=== PATIENT | female | born 1990 | race Caucasian/White ===

== ENCOUNTER 2019-07-25 14:24 | Emergency (ER) | payer OTHER ==
[2019-07-25 14:33] VITALS: BP 163/119
== END 2019-07-25 14:54 | disposition left against medical advice (07) ==
LOC: ED 14:24
DX: Z53.21 Procedure and treatment not carried out due to patient leaving prior to being seen by health care provider (principal); R51 Headache
CPT/HCPCS: 99281

== ENCOUNTER 2019-07-25 15:00 | Emergency (ER) | payer SELFPAY ==
--- OUTSIDE RECORDS SUMMARY | 2019-07-25 15:09 | XMS REPORT | Continuity of Care Document ---
:1990 Author Organization [facility] Support Name Relationship Address Phone KETAN BENAVIDEZ mother [address] [place] [address] KETAN BENAVIDEZ mother [address] [place] [address] Allergies and Intolerances Code Code Allergy Type Reaction Severity Start End Status System Substance Date Date RXNorm Omnicef Drug Rash Mild Active allergy (disorder) 7980 RXNorm Penicillin G Drug Rash Mild Active allergy (disorder) 4053 RXNorm Erythromycin Drug stomach Mild Active Base allergy upset (disorder) 7052 RXNorm Morphine Drug stomach ach Mild Active allergy (disorder) Medications RxNorm Medication Dose Route Instructions Start Date End Date Status 676314 Clonidine 0.1 mg oral orally every day Active Hydrochloride 0.1 at bedtime as MG Oral Tablet needed. L-Norgest & E 1 tab oral orally daily Active Estradiol-E Estrad 0.15 mg-30 mcg (84)/10 mcg (7) 17866 Ondansetron 4 mg oral orally every 6 Active hours as needed. (as needed for nausea and vomiting) 479315 venlafaxine 75 MG 75 mg oral orally daily Active Oral Tablet 509574 24 HR venlafaxine 37.5 mg oral orally daily Completed 37.5 MG Extended Release Oral Capsule 19740924 Ciprofloxacin 250 250 mg oral orally 2 times 04/19/2019 Completed MG Oral Tablet per day (7 days) 912292 Clonidine 0.1 mg oral orally every day Completed Hydrochloride 0.1 at bedtime MG Oral Tablet 364 Doxycycline 100 mg oral orally 2 times Completed per day (14 days) L-Norgest & E 1 tab oral orally daily Completed Estradiol-E Estrad (Seasonique) 532753 Metronidazole 500 500 mg oral orally 2 times Completed MG Oral Tablet per day (7 days) Medications At Time Of Discharge RxNorm Medication Dose Route Instructions Start Date End Date Status 093883 Clonidine 0.1 mg oral orally every day Active Hydrochloride 0.1 MG at bedtime as Oral Tablet needed. L-Norgest & E 1 tab oral orally daily Active Estradiol-E Estrad 0.15 mg-30 mcg (84)/10 mcg (7) 71919 Ondansetron 4 mg oral orally every 6 Active hours as needed. (as needed for nausea and vomiting) 622566 venlafaxine 75 MG 75 mg oral orally daily Active Oral Tablet Problems Code Code System Problem Name Start Date End Date Status 42079712 SNOMED-CT Pyelonephritis 11/26/2017 Active 694911019 SNOMED-CT Sepsis syndrome 11/26/2017 Active 64227159 SNOMED-CT Hyponatremia 11/26/2017 Active 078157049 SNOMED-CT Hypomagnesemia 11/26/2017 Active 33179690 SNOMED-CT Muscle strain 07/01/2013 U Active 35449199 SNOMED-CT Maxillary sinusitis U Active 56030307 SNOMED-CT Contusion of nose U Active 168595916 SNOMED-CT Syncope U Active 10617705 SNOMED-CT Migraine U Active 07899381 SNOMED-CT Kidney stone U Active Procedures Code Code System Procedure Date 62967551 SNOMED CT Cholecystectomy U GANGLION CYST REMOVAL U Results Laboratory Results Order: BASIC METABOLIC PANEL Specimen Source: Body Site: Legend: (G,H) = High, (GG,HH,CH,#H) = Above High Threshold, ( #,L) = Low, (##,CL,#L,LL) = Below Low Threshold, (C,CC,CA,#A,A) = Abnormal LOINC Test Result Flag Range Units Date 2950-10 1Sodium SerPl-sCnc 137 136-145 mmol/L 06/21/2019 12:41 2823-3 1Potassium SerPl-sCnc 4.0 3.5-5.2 mmol/L 06/21/2019 12:41 5-0 1Chloride SerPl-sCnc 113 H 100-108 mmol/L 06/21/2019 12:41 2027-9 1CO2 SerPl-sCnc 19 L 21-32 mmol/L 06/21/2019 12:41 2345-7 1Glucose SerPl-mCnc 83 70-100 mg/dL 06/21/2019 12:41 3094-0 1BUN SerPl-mCnc 8 7-21 mg/dL 06/21/2019 12:41 2160-0 1Creat SerPl-mCnc 0.7 0.6-1.3 mg/dL 06/21/2019 12:41 Interpretive Daiana: 1Normal Kidney Function or Mild Disease - GFR >OR= 60 Chronic Kidney Disease - GFR 15-59 Renal Failure - GFR < 15 GFR not calculated on patients under 18 years of age. Calculated (estimated) GFR is based on the MDRD Study equation, which assumes a steady state for creatinine. Estimated GFR may not be appropriate for medication dosing. 89835-0 1Ca-I SerPl-mCnc 7.8 L 8.5-10.8 mg/dL 06/21/2019 12:41 13331-3 1GFR/BSA.pred SerPl-ArVRat >60 06/21/2019 12:41 Performing Lab Footnotes:[facility] - [id number] - [address] [place] [address] IFRAH [id number] Order: LIPASE Specimen Source: Body Site: Legend: (G,H) = High, (GG,HH, CH,#H) = Above High Threshold, (#,L) = Low, (##,CL,#L,LL) = Below Low Threshold , (C,CC,CA,#A,A) = Abnormal LOINC Test Result Flag Range Units Date 3040-3 1Lipase SerPl-cCnc 47 8-78 U/L 06/21/2019 12:41 Performing Lab Footnotes:[facility] - [id number] - [address] [place] [address] IFRAH [id number] Order: AMYLASE Specimen Source: Body Site: Legend: (G,H) = High, (GG,HH ,CH,#H) = Above High Threshold, (#,L) = Low, (##,CL,#L,LL) = Below Low Threshold , (C,CC,CA,#A,A) = Abnormal LOINC Test Result Flag Range Units Date 17996 1Amylase Ur-cCnc 216 H 25-125 U/L 06/21/2019 07:00 Performing Lab Footnotes:[facility] - [id number] - [address] [place] [address] IFRAH Saucedo CORINAOMD1 Order: CBC DIFF Specimen Source: Body Site: Legend: (G,H) = High, (GG, HH,CH,#H) = Above High Threshold, (#,L) = Low, (##,CL,#L,LL) = Below Low Threshold, (C,CC,CA,#A,A) = Abnormal LOINC Test Result Flag Range Units Date 6690-2 1WBC # Bld Auto 8.0 4.8-10.8 K/uL 06/21/2019 07:00 06817-7 1RBC # Bld 4.57 4.20-5.40 M/uL 06/21/2019 07:00 718-7 1Hgb Bld-mCnc 12.9 12.0-16.0 gm/dL 06/21/2019 07:00 4544-3 1Hct VFr Bld Auto 38.4 36.0-48.0 % 06/21/2019 07:00 787-2 1MCV RBC Auto 83.8 80.0-100.0 fL 06/21/2019 07:00 42132-2 1MCHC RBC-mCnc 33.6 30.0-36.5 % 06/21/2019 07:00 26716-2 1MCH RBC Qn 28.2 27.0-34.0 pg 06/21/2019 07:00 29522-8 1RDW RBC 11.7 11.0-15.0 % 06/21/2019 07:00 777-3 1Platelet # Bld Auto 245 130-450 K/uL 06/21/2019 07:00 29567-4 1PMV Bld Auto 8.3 6.0-12.0 fL 06/21/2019 07:00 751-8 1Neutrophils # Bld Auto 53 37-80 % 06/21/2019 07:00 64440-3 1Lymphocytes NFr Bld 34 10-50 % 06/21/2019 07:00 5905-5 1Monocytes NFr Bld Auto 9 0-12 % 06/21/2019 07:00 46513-7 1Eosinophil # Bld 2 <=8 % 06/21/2019 07:00 704-7 1Basophils # Bld Auto 1 <=3 % 06/21/2019 07:00 01216-1 1Neutrophils # Bld 4.2 1.8-8.6 K/uL 06/21/2019 07:00 731-0 1Lymphocytes # Bld Auto 2.7 0.5-5.0 K/uL 06/21/2019 07:00 742-7 1Monocytes # Bld Auto 0.7 0.0-1.3 K/uL 06/21/2019 07:00 29550-3 1Eosinophil # Bld 0.2 0.0-0.9 K/uL 06/21/2019 07:00 704-7 1Basophils # Bld Auto 0.1 0.0-0.3 K/ul 06/21/2019 07:00 Performing Lab Footnotes:[facility] - [id number] - [address] [place] [address] IFRAH VICK Order: CK Specimen Source: Body Site: Legend: (G,H) = High, (GG,HH,CH,# H) = Above High Threshold, (#,L) = Low, (##,CL,#L,LL) = Below Low Threshold, (C, CC,CA,#A,A) = Abnormal LOINC Test Result Flag Range Units Date 2157-6 1CK SerPl-cCnc 445 CH 21-215 U/L 06/21/2019 07:00 Performing Lab Footnotes:[facility] - [id number] - [address] [place] [address] IFRAH Saucedo RICCIOMD1 Order: COMPREHENSIVE PANEL Specimen Source: Body Site: Legend: (G,H) = High, (GG,HH,CH,#H) = Above High Threshold, (#,L) = Low, (##,CL,#L,LL) = Below Low Threshold, (C,CC,CA,#A,A) = Abnormal LOINC Test Result Flag Range Units Date 2951-2 1Sodium SerPl-sCnc 136 136-145 mmol/L 06/21/2019 07:00 2823-3 1Potassium SerPl-sCnc 4.2 3.5-5.2 mmol/L 06/21/2019 07:00 2075-0 1Chloride SerPl-sCnc 111 H 100-108 mmol/L 06/21/2019 07:00 8-9 1CO2 SerPl-sCnc 19 L 21-32 mmol/L 06/21/2019 07:00 2345-7 1Glucose SerPl-mCnc 102 H 70-100 mg/dL 06/21/2019 07:00 3094-0 1BUN SerPl-mCnc 11 7-21 mg/dL 06/21/2019 07:00 2160-0 1Creat SerPl-mCnc 0.7 0.6-1.3 mg/dL 06/21/2019 07:00 Interpretive Daiana: 1Normal Kidney Function or Mild Disease - GFR >OR= 60 Chronic Kidney Disease - GFR 15-59 Renal Failure - GFR < 15 GFR not calculated on patients under 18 years of age. Calculated (estimated) GFR is based on the MDRD Study equation, which assumes a steady state for creatinine. Estimated GFR may not be appropriate for medication dosing. 42098-8 1Ca-I SerPl-mCnc 8.4 L 8.5-10.8 mg/dL 06/21/2019 07:00 70535-7 1GFR/BSA.pred SerPl-ArVRat >60 06/21/2019 07:00 29503-7 1Bilirub Bld-mCnc 0.4 0.0-1.2 mg/dL 06/21/2019 07:00 2885-2 1Prot SerPl-mCnc 6.8 6.4-8.2 gm/dL 06/21/2019 07:00 1751-7 1Albumin SerPl-mCnc 4.0 3.4-4.8 gm/dL 06/21/2019 07:00 6768-6 1ALP SerPl-cCnc 58 40-150 U/L 06/21/2019 07:00 1742-6 1ALT SerPl-cCnc 20 0-55 U/L 06/21/2019 07:00 1920-8 1AST SerPl-cCnc 22 5-37 U/L 06/21/2019 07:00 Performing Lab Footnotes:[facility] - [id number] - [address] [place] [address] IFRAH VICK Order: LIPASE Specimen Source: Body Site: Legend: (G,H) = High, (GG,HH, CH,#H) = Above High Threshold, (#,L) = Low, (##,CL,#L,LL) = Below Low Threshold , (C,CC,CA,#A,A) = Abnormal LOINC Test Result Flag Range Units Date 3040-3 1Lipase SerPl-cCnc 268 H 8-78 U/L 06/21/2019 07:00 Performing Lab Footnotes:[facility] - [id number] - [address] [place] [address] IFRAH ARRIAGAOMD1 Order: MAGNESIUM Specimen Source: Body Site: Legend: (G,H) = High, (GG, HH,CH,#H) = Above High Threshold, (#,L) = Low, (##,CL,#L,LL) = Below Low Threshold, (C,CC,CA,#A,A) = Abnormal LOINC Test Result Flag Range Units Date 35296-6 1Magnesium SerPl-mCnc 1.9 1.7-2.6 mg/dL 06/21/2019 07:00 Performing Lab Footnotes:[facility] - [id number] - [address] [place] [address] IFRAH ARRIAGAOMD1 Order: PT/INR Specimen Source: Body Site: Legend: (G,H) = High, (GG,HH, CH,#H) = Above High Threshold, (#,L) = Low, (##,CL,#L,LL) = Below Low Threshold , (C,CC,CA,#A,A) = Abnormal LOINC Test Result Flag Range Units Date 59022 1PT Time PPP 10.8 9.4-12.4 sec 06/21/2019 07:00 6301-6 1INR PPP 1.0 06/21/2019 07:00 Interpretive Daiana: 1 INR INTERPERTATION 2.0-3.0 THERAPEUTIC MONITORING 2.5-3.5 HEART VALVE REPLACEMENT Performing Lab Footnotes:[facility] - [id number] - [address] [place] [address] IFRAH VICK Order: PTT Specimen Source: Body Site: Legend: (G,H) = High, (GG,HH,CH, #H) = Above High Threshold, (#,L) = Low, (##,CL,#L,LL) = Below Low Threshold, (C ,CC,CA,#A,A) = Abnormal LOINC Test Result Flag Range Units Date 3172-10 1aPTT Time Bld 27.2 25.6-36.4 sec 06/21/2019 07:00 Performing Lab Footnotes:[facility] - [id number] - [address] [place] [address] IFRAH VICK Order: TROPONIN I Specimen Source: Body Site: Legend: (G,H) = High, (GG ,HH,CH,#H) = Above High Threshold, (#,L) = Low, (##,CL,#L,LL) = Below Low Threshold, (C,CC,CA,#A,A) = Abnormal LOINC Test Result Flag Range Units Date 92363-5 1Troponin I SerPl-mCnc 0.00 0.00-0.04 ng/mL 06/21/2019 07:00 Interpretive Daiana: 1 TROPONIN INTERPRETATION 0.00 - 0.04 ng/ml Normal 0.05 - 0.29 ng/ml Dang Zone, Uncertain for AMI Greater than 0.30 ng/ml Suggestive of AMI Performing Lab Footnotes:[facility] - [id number] - [address] [place] [address] IFRAH Saucedo NAVA Radiology Results Order: CT-ABD PELVIS WITH IV CONTRASTExam Completion Date:06/21/2019 08: 10:[address] ABDOMEN AND PELVIS WITH CONTRAST CLINICAL INFORMATION: -- UNSPECIFIED ABDOMINAL PAIN COMPARISON: CT abdomen and pelvis September 2018 PROCEDURE: Contiguous images were obtained through the abdomen and pelvis with intravenous contrast. Automated exposure control, adjustment of the mA and/or kV according to patient size, and/or iterative reconstruction techniques were utilized for radiation dose optimization. Amount and type of contrast that was injected and/ or discarded is recorded in the electronic medical record. FINDINGS: Chest Base: Unremarkable. Liver/Biliary Tract: Cholecystectomy. Mild fatty change along the falciform ligament. Pancreas: Unremarkable. Spleen: Unremarkable. Adrenals: Unremarkable. Kidneys and Collecting Systems: There are bilateral lower pole renal calculi, 2 on the right and 2 on the left. All measure less than 3 mm in size. The calculi on the left were not present in September 2018. No hydronephrosis or focal renal lesion is seen bilaterally. Lymph Nodes: Unremarkable. Vessels: Unremarkable for age. GI Tract/ Mesentery and Peritoneal Cavity: Bowel unremarkable. Normal appendix. Uterus/ Ovaries: Unremarkable. Bladder: Unremarkable. Soft Tissues/Musculoskeletal : No acute abnormality. IMPRESSION: Bilateral nonobstructing lower pole renal calculi. All measure less than 3 mm in size. No hydronephrosis bilaterally. The left-sided renal calculi are new since September 2018. END OF IMPRESSION I have personally reviewed the images and the Resident's/Fellow 's interpretation and agree withor edited the findings. [facility] then provides those same results to [facility]. All results are availableto [facility] and [facility] provider portal users. [facility] DICOM images are available to the [facility] provider portal users only. [facility] DICOM images are not available to the [facility] provider portal users. There is no current [facility] cross-[facility] functionality allowing images to be available through the [facility] to [facility] connectivity. Interpreted By: Rahul Norton M.D. Electronically signed By: Ifrah Ventura M.D. Read By: IFRAH VENTURA Date: 06/21/2019 10:27Order: CHEST PORTABLE-SINGLEExam Completion Date:06/21/2019 07: 7:30 AM CHEST X -RAY CLINICAL INFORMATION: PORTABLE CHEST XRAY STAT -- CHEST PAIN, UNSPECIFIED COMPARISON: CT abdomen pelvis 10/22/2018 and relevant prior studies. PROCEDURE: A single frontal projection of the chest was obtained. FINDINGS: Tubes and Catheters: None. Central Airways: Normal. Lungs: Right basilar opacity, likely atelectasis. Pleura/Pleural space: Normal. Heart and Mediastinum: Normal. Additional Findings: No acute or aggressive osseous changes noted. IMPRESSION: No acute cardiopulmonary disease. END OF IMPRESSION I have personally reviewed the images and the Resident's/ Fellow's interpretation and agree with or edited the findings. [facility] submits Radiology [facility] then provides those same results to [facility]. All results are available to [facility] and [facility] provider portal users. [facility] DICOM images are available to the [facility] provider portal users only. [facility] DICOM images are not available [facility] provider portal users. There is no current [facility] cross-[facility] functionality allowing images to be available through the [facility] to [facility] connectivity. Interpreted By: Lili Colon M.D. Electronically signed By: John Abrams MD Read By: JOHN ABRAMS Date: 07:52 Social History Code Code System Social History Observation Description Dates Observed 692191636 SNOMED CT Current Smoking Status Never smoker UNK AdministrativeGender Sex Assigned At Unknown Vital Signs Code Code System Vitals Value Date 8310-5 LOINC Body Temperature 98.1 [degF] 06/21/2019 8865-8 LOINC Pulse Rate 120 {beats}/min 06/21/2019 9279-1 LOINC Respiratory Rate 26 /min 06/21/2019 66780-4 LOINC O2% BldC Oximetry 98 % 06/21/2019 8480-6 LOINC BP Systolic 126 mm[Hg] 06/21/2019 8462-4 LOINC BP Diastolic 73 mm[Hg] 06/21/2019 8302-2 LOINC Height 62 [in_i] 06/21/2019 25881-7 LOINC Weight 70 kg 06/21/2019 3140-1 LOINC Body surface area Derived from formula 1.71 m2 06/21/2019 08958-6 LOINC BMI (Body Mass Index) 28.3 kg/m2 06/21/2019 Goals Section No data in the system Health Concerns No data in the systemEncounter Diagnosis Date Code Code System Diagnosis Status K85.90 ICD10 ACUTE PANCREATITIS WO NECRS/INF UNS Active Advance Directives *[facility] - CONSENT IS YES Directive Type Effective Date Garnishment Specialist Notes Supporting Document Name Address Phone No Directive Type 04/03/2015 Not Specified Not Specified Not Specified None No specified 11:45:46 AM PT STATES NO ADVANCE DIRECTIVES Directive Type Effective Date Garnishment Specialist Notes Supporting Document Name Address Phone No Directive Type 11/26/2017 6:00:00 Not Specified Not Specified Not Specified None No specified PM Encounters Encounter Diagnosis Location Date ACUTE PANCREATITIS WO NECRS/INF UNS [facility] 06/21/2019 Family History Relationship: Father Health Problem Age At Onset Notes MVP - Mitral valve prolapse (Mitral valve prolapse) Relationship: Maternal Grandmother () Health Problem Age At Onset Notes [place] - Lung cancer (Malignant tumor of lung) Relationship: Paternal Grandmother Health Problem Age At Onset Notes HYPERTENSION Functional Status Code Functional Condition Code System Date Status Independent adls SNOMED CT 06/21/2019 Active Appears well nourished/hydrated SNOMED CT 06/21/2019 Active Immunizations Vaccine Code Code System Vaccine Name Date Status 115 CVX tetanus toxoid, reduced 03/03/2014 Completed diphtheria toxoid, and acellular pertussis vaccine, adsorbed 88 CVX influenza virus vaccine, 06/24/2015 Completed NOS INFLUENZA VACC QUAD 12/30/2016 Not given (patient (3YO+) objection) Medical Equipment Implants Implanted Date Implant Site NADEEM 12/23/2016 left neph tube left flank Mental Status Code Cognitive Condition Code System Date Status Oriented x [address] 06/21/2019 Active Moderate distress SNOMED CT 06/21/[address] 06/21/[address] 06/21/2019 Active No acute distress SNOMED CT 06/21/2019 Active Assessment and Plan Assessments No data in the systemPlan Of Treatment No data in the systemPending Tests No data in the system Hospital Discharge Instructions No data in the system Reason for Visit Reason for Visit Cardiac Risk Factors
--- OUTSIDE RECORDS SUMMARY | 2019-07-25 15:10 | XMS REPORT | Continuity of Care Document ---
:1990 External Reference #:[id number] Author Name Hortencia Kate CNM Address [address] [place] [id number] Care Team Providers Name Role Phone Gerald Daniel MD - Internal Care Team Information Sas Programmer Analyst [phone] Medicine Leonid Contreras PA - Medical Care Team Information Sas Programmer Analyst Poonam Gomez M.D. - Family Medicine Care Team Information Sas Programmer Analyst [phone] Problems Active Problems Provider Date Taking medication Hortencia Kate CNM Onset: 08/09/2015 Less than 8 weeks gestation of solution engineer Ultrasound Onset: 10/06/2016 Encounter for supervision of normal solution engineer Ultrasound Onset: 10/06/2016 , unspecified, first trimester Encounter for supervision of other normal Nicanor Melton MD Onset: 2016 , second trimester Encounter for supervision of other normal Nicanor Melton MD Onset: 2016 , third trimester Social History Type Date Description Comments Sex Unknown Tobacco Use Start: Unknown Never Smoked Cigarettes ETOH Use Denies alcohol use Recreational Drug Use Denies Drug Use Tobacco Use Start: Unknown Patient has never smoked Smoking Status Reviewed: 06/23/19 Patient has never smoked Exercise Type/Frequency Exercises sporadically Tattoo/Piercing Tattoo multiple Tattoo/Piercing Pierced ears Tattoo/Piercing Pierced Navel Tattoo/Piercing Pierced Nasal Area GABINO: 06/01/2017 Estimated Date of Based on Final GABINO Delivery AGBINO: 07/31/2014 Estimated Date of Based on Final GABINO Delivery Allergies, Adverse Reactions, Alerts Active Allergies Reaction Severity Comments Date Omnicef Rash that looks like patient burned 07/27/2006 Penicillin Hives 02/16/2006 Seasonal 04/03/2019 Medications Active Medications SIG Qnty Indications Ordering Provider Date Venlafaxine HCL ER 1 by mouth every 90caps F41.1 Poonam Gomez M.D. 2018 75mg day Caps ER 24HR Lorazepam take 1 tab by 15tabs Sarah Beth Redmond, 05/15/2019 0.5mg Tablets mouth once a day ECOMMERCE MANAGER as needed. Clonidine HCL Take 1 Tablet By 30tabs F41Catherine1 Poonam Gomez M.D. 04/03/2019 0.1mg Mouth Every Day Tablets AT Bedtime as Needed Seasonique 1 by mouth every 84tabs Hortencia Lamar 07/20/2017 day STANISLAW Kate 0.15-0.03&0.01mg Tablets Excedrin Migraine 2 tabs by mouth Unknown as needed for [phone] Tablets migraines, to stop if flu or vomiting History Medications Metronidazole 1 by mouth 14tabs Z01.411 Hortencia Lamar 06/09/2019 - 500mg twice a day STANISLAW Kate 06/16/2019 Tablets for 7 days Doxycycline Hyclate one by mouth 28caps N73.9 Renee 06/09/2019 - 100mg twice a day x STANISLAW Kate 06/23/2019 Capsules 14 days Venlafaxine HCL ER 1 by mouth F41.1 Poonam Gomez M.D. 05/15/2019 - 37.5mg every day 05/15/2019 Caps ER 24HR Venlafaxine HCL ER 1 tab by 90caps F41.1 Poonam Gomez M.D. 04/03/2019 - 37.5mg mouth once a 05/15/2019 Caps ER 24HR day Immunizations CPT Code Status Date Vaccine Lot # [id number] Given 08/14/2018 Influenza(Flublok)Virus Vaccine 18yr & up-Pres [id number] Free 81587 Given 03/16/2017 Tetanus, Diphtheria Toxoids/Acellular Pertussis [id number] Vaccine 7 Or > 45580 Given 06/14/2015 Influenza Quad 3yrs (0.5-ml dose) & up with preservative 44870 Given 07/08/2014 Tetanus, Diphtheria Toxoids/Acellular Pertussis 3P9CL Vaccine 7 Or > 76999 Given 05/07/2008 Menactra-Meningococcal Conj Vaccine 23157 Given 04/16/2007 Menactra-Meningococcal Conj Vaccine 24294 Given 01/31/2007 Tetanus, Diphtheria Toxoids/Acellular Pertussis Vaccine 7 Or > 06796 Given 08/13/2000 Poliovirus Vaccine Oral 88401 Given 10/21/1998 Hepatitis B Vaccine Pediatric/Adolescent 56956 Given 05/12/1998 Hepatitis B Vaccine Pediatric/Adolescent 60330 Given 04/15/1998 Hepatitis B Vaccine Pediatric/Adolescent 60551 Given 03/10/1994 DTaP Vaccine Younger Than 7 (daptacel/Infarix) 77971 Given 03/10/1994 MMR Vaccine, Live, For Subcutaneous Use 00677 Given 03/10/1994 Poliovirus Vaccine Oral 35908 Given 04/21/1992 Poliovirus Vaccine Oral 10601 Given 04/21/1992 DTP Vaccine 46415 Given 12/11/1990 MMR Vaccine, Live, For Subcutaneous Use 78003 Given 12/11/1990 DTP Vaccine 00199 Given 12/11/1990 Hib Hboc Conjugate 4 Dose Schedule 99471 Given 06/25/1990 Poliovirus Vaccine Oral 11535 Given 06/25/1990 DTP Vaccine 34978 Given 1989 DTP Vaccine Vital Signs Date Vital Result Comment 06/23/2019 8:42am Weight 153.00 lb Weight 69.401 kg BMI (Body Mass Index) 28.0 kg/m2 BP Systolic 116 mmHg BP Diastolic 78 mmHg Height 62 inches 5'2" Height in cm's 157.5 cm Last Menstrual Period 8611520 4 Parity 3 06/09/2019 8:12am Weight 153.00 lb Weight 69.401 kg BMI (Body Mass Index) 28.0 kg/m2 BP Systolic 102 mmHg BP Diastolic 76 mmHg Height 62 inches 5'2" Height in cm's 157.5 cm Last Menstrual Period 8173350 Results Test Date Facility Test Result H/L Range Note Vaginal Panel 06/09/2019 [facility] Bacterial POSITIVE Negative PCR [address] Vaginosis [place], [place] [id number] [phone] Iesha Species NEGATIVE Negative 1 Iesha Krusei NEGATIVE Negative Iesha Glabrata NEGATIVE Negative Trichomonas NEGATIVE Negative 2 GC Chlamydia Amp Assay 06/09/2019 [facility] Chlamydia NEGATIVE Negative [address] [place] [address] [phone] GC NEGATIVE Negative 4 Laboratory test 05/15/2019 [facility] TSH 1.27 uIU/mL 0.34- 4.82 finding [phone] Xray 03/11/2019 [facility] Tibia & <pending> [address], [address] [place] [address] Views RT [phone] 1 Iesha species includes Iesha albicans and/or Iesha tropicalis and/or Iesha parapsilosis and/or Iesha dubliniensis. 2 Methodology: Polymerase Chain Reaction (PCR) 3 A negative result does not rule out Chlamydia trachomatis infection because results are dependent on adequate specimen collection, absence of inhibitors, and sufficient DNA to be detected. Methodology: Nucleic Acid Amplification (LAUREN) 4 A negative result does not rule out Neisseria gonorrhoeae infection because results are dependent on adequate specimen collection, absence of inhibitors, and sufficient DNA to be detected. 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 8:15a And Gynecology Ups STANISLAW Kate exam (general) (routine) w abnormal findings N73.9 Female pelvic inflammatory disease, unspecified N76.0 Acute vaginitis Office Visit 05/15/2019 [place] [facility] Poonam Gomez, F41.0 Panic disorder 9:45a Care Mukesh [episodic paroxysmal anxiety] Office Visit 04/03/2019 [place] [facility] Poonam Gomez, F41.1 Generalized 1:15p Care MNguyen anxiety disorder Office Visit 03/11/2019 [place] [facility] M79.661 Pain in right 11:00a Orthopaedic Mukesh Yuen lower leg Specialists Assessments Date Code Description Provider 06/23/2019 R10.2 Pelvic and perineal pain Hortencia Kate CNM 06/23/2019 N92.6 Irregular menstruation, unspecified Hortencia Kate CNM 06/09/2019 Z01.411 Encounter for gynecological examination Hortencia Kate CNM (general) (routine) with abnormal findings 06/09/2019 N73.9 Female pelvic inflammatory disease, Hortencia Lamar STANISLAW Kate unspecified 06/09/2019 N76.0 Acute vaginitis Hortencia Lamar STANISLAW Kate 05/15/2019 F41.0 Panic disorder [episodic paroxysmal Apc and Endo Draw anxiety] 05/15/2019 F41.0 Panic disorder [episodic paroxysmal Poonam Gomez M.D. anxiety] 05/15/2019 F41.1 Generalized anxiety disorder Apc and Endo Draw 04/03/2019 F41.1 Generalized anxiety disorder Poonam Gomez M.D. 03/11/2019 M79.661 Pain in right lower leg Eric Yuen M.D. Plan of Treatment Future Appointment(s):08/13/2019 10:45 am - Poonam Gomez M.D. at [facility] Functional Status Functional Condition Comment Date Status Soft Contacts Active Glasses Active Mental Status Description No Information Available Referrals Description No Information Available
--- OUTSIDE RECORDS SUMMARY | 2019-07-25 15:10 | XMS REPORT | Continuity of Care Document ---
:1990 Author Organization [facility] Care Team Providers Name Role Phone ROSIE BOLDEN Admitting Physician ROSIE BOLDEN Attending Physician Allergies and Intolerances Code Code Allergy Type Reaction Severity Start End Status System Substance Date Date 61164 RXNorm Omnicef Drug Rash Mild Active allergy (disorder) 7980 RXNorm Penicillin G Drug Rash Mild Active allergy (disorder) 4053 RXNorm Erythromycin Drug stomach Mild Active Base allergy upset (disorder) 7029 RXNorm Morphine Drug stomach ach Mild Active allergy (disorder) Medications RxNorm Medication Dose Route Instructions Start Date End Date Status 037493 Clonidine 0.1 mg oral orally every day Active Hydrochloride 0.1 MG at bedtime as Oral Tablet needed. L-Norgest & E 1 tab oral orally daily Active Estradiol-E Estrad 0.15 mg-30 mcg (84)/10 mcg (7) 41570 Ondansetron 4 mg oral orally every 6 Active hours as needed. (as needed for nausea and vomiting) 855304 venlafaxine 75 MG 75 mg oral orally daily Active Oral Tablet Medications At Time Of Discharge RxNorm Medication Dose Route Instructions Start Date End Date Status 929012 Clonidine 0.1 mg oral orally every day Active Hydrochloride 0.1 MG at bedtime as Oral Tablet needed. L-Norgest & E 1 tab oral orally daily Active Estradiol-E Estrad 0.15 mg-30 mcg (84)/10 mcg (7) 32069 Ondansetron 4 mg oral orally every 6 Active hours as needed. (as needed for nausea and vomiting) 486094 venlafaxine 75 MG 75 mg oral orally daily Active Oral Tablet Problems Code Code System Problem Name Start Date End Date Status 96152849 SNOMED-CT Pyelonephritis 11/26/2017 Active 413696937 SNOMED-CT Sepsis syndrome 11/26/2017 Active 62208336 SNOMED-CT Hyponatremia 11/26/2017 Active 595544718 SNOMED-CT Hypomagnesemia 11/26/2017 Active 29070097 SNOMED-CT Muscle strain 07/01/2013 U Active 08010390 SNOMED-CT Maxillary sinusitis U Active 05412580 SNOMED-CT Contusion of nose U Active 402652855 SNOMED-CT Syncope U Active 99960730 SNOMED-CT Migraine U Active 29202261 SNOMED-CT Kidney stone U Active Procedures Code Code System Procedure Date 68274065 SNOMED CT Cholecystectomy U GANGLION CYST REMOVAL U Results Laboratory Results Order: GC-CHLAMYDIA AMPLIFIED ASSAY Specimen Source: Swab Body Site: Endocervix Legend: (G,H) = High, (GG,HH,CH,#H ) = Above High Threshold, (#,L) = Low, (##,CL,#L,LL) = Below Low Threshold, (C, CC,CA,#A,A) = Abnormal LOINC Test Result Flag Range Units Date 1C trach DNA XXX Ql PCR NEGATIVE NEGATIVE 06/09/2019 09:13 Interpretive Daiana: 1A negative result does not rule out Chlamydia trachomatis infection because results are dependent on adequate specimen collection, absence of inhibitors, and sufficient DNA to be detected. Methodology: Nucleic Acid Amplification (LAUREN) 41017-3 1N gonorrhoea DNA XXX Ql PCR NEGATIVE NEGATIVE 06/09/2019 09:13 Interpretive Daiana: 1A negative result does not rule out Neisseria gonorrhoeae infection because results are dependent on adequate specimen collection, absence of inhibitors, and sufficient DNA to be detected. Performing Lab Footnotes:[facility] - [id number] - [address] [place] [id number] IFRAH VICK Order: VAGINAL PANEL, PCR Specimen Source: Swab Body Site: Legend: (G, H) = High, (GG,HH,CH,#H) = Above High Threshold, (#,L) = Low, (##,CL,#L,LL) = Below Low Threshold, (C,CC,CA,#A,A) = Abnormal LOINC Test Result Flag Range Units Date 1BACTERIAL VAGINOSIS POSITIVE ! NEGATIVE 06/09/2019 09:13 1CANDIDA SPECIES NEGATIVE NEGATIVE 06/09/2019 09:13 Interpretive Daiana: 1Candida species includes Iesha albicans and/or Iesha tropicalis and/or Iesha parapsilosis and/or Iesha dubliniensis. 1CANDIDA KRUSEI NEGATIVE NEGATIVE 06/09/2019 09:13 1CANDIDA GLABRATA NEGATIVE NEGATIVE 06/09/2019 09:13 1TRICHOMONAS NEGATIVE NEGATIVE 06/09/2019 09:13 Interpretive Daiana: 1Methodology: Polymerase Chain Reaction (PCR) Performing Lab Footnotes:[facility] - [id number] - [address] [place] [address] IFRAH Saucedo [id number] Pathology Results Order:PATHOLOGY CYTOLOGY HISTOLCollected Date: 06/09/2019 12:00:00 AM HISTORY: Z01.411. GENOTYPE. LAST PAP SMEAR-03/25/18-NEGATIVE. ORAL CONTRACEPTIVE. SCREENING. SPECIMEN DESCRIPTION: SUREPATH PAP SCREENING, CERVICAL ENDOCERVICAL SPECIMEN ADEQUACY SATISFACTORY ENDOCERVICAL CELLS PRESENT. GENERAL CATEGORIZATION: NEGATIVE FOR INTRAEPITHELIAL LESION OR MALIGNANCY DESCRIPTIVE DIAGNOSIS: NEGATIVE FOR INTRAEPITHELIAL LESION OR MALIGNANCY. ACUTE INFLAMMATORY CELLS PRESENT. AMPARO BAILEY (ASCP) (CASE SIGNED 06/11/2019) Social History Code Code System Social History Description Dates Observed Observation 213814797 SNOMED CT Current Smoking Unknown if ever Status smoked UNK AdministrativeGender Sex Assigned At Unknown Vital Signs No data in the system Goals Section No data in the system Health Concerns No data in the systemEncounter Diagnosis Date Code Code System Diagnosis Status Z01.411 ICD10 ENC KEY RINGER EXAM GEN RTN W/ABNORM FIND Active Advance Directives *RHIO - CONSENT IS YES Directive Type Effective Date Effervescent Salts Compounder Notes Supporting Document Name Address Phone No Directive Type 04/03/2015 Not Specified Not Specified Not Specified None No specified 11:45:46 AM PT STATES NO ADVANCE DIRECTIVES Directive Type Effective Date Effervescent Salts Compounder Notes Supporting Document Name Address Phone No Directive Type 11/26/2017 6:00:00 Not Specified Not Specified Not Specified None No specified PM Encounters Encounter Diagnosis Location Date ENC KEY RINGER EXAM GEN RTN W/ABNORM FIND [facility] 06/09/2019 Family History Relationship: Father Health Problem Age At Onset Notes MVP - Mitral valve prolapse (Mitral valve prolapse) Relationship: Maternal Grandmother () Health Problem Age At Onset Notes [place] - Lung cancer (Malignant tumor of lung) Relationship: Paternal Grandmother Health Problem Age At Onset Notes HYPERTENSION Functional Status No data in the system Immunizations Vaccine Code Code System Vaccine Name Date Status 115 CVX tetanus toxoid, reduced 03/03/2014 Completed diphtheria toxoid, and acellular pertussis vaccine, adsorbed 88 CVX influenza virus vaccine, 06/24/2015 Completed NOS INFLUENZA VACC QUAD 12/30/2016 Not given (patient (3YO+) objection) Medical Equipment Implants Implanted Date Implant Site NADEEM 12/23/2016 left neph tube left flank Mental Status No data in the system Assessment and Plan Assessments No data in the systemPlan Of Treatment No data in the systemPending Tests No data in the system Hospital Discharge Instructions No data in the system Reason for Visit No data in the system
--- OUTSIDE RECORDS SUMMARY | 2019-07-25 15:10 | XMS REPORT | Continuity of Care Document ---
:1990 External Reference #:[id number] Author Name Hortencia Kate CNM Address [address] [place] [phone] Care Team Providers Name Role Phone Gerald Daniel MD - Internal Care Team Information Breaker Boss [phone] Medicine Leonid Contreras PA - Medical Care Team Information Breaker Boss Poonam Gomez M.D. - Family Medicine Care Team Information Breaker Boss Problems Active Problems Provider Date Taking medication Hortencia Kate CNM Onset: 08/09/2015 Less than 8 weeks gestation of aeronautical design engineer Ultrasound Onset: 10/06/2016 Encounter for supervision of normal aeronautical design engineer Ultrasound Onset: 10/06/2016 , unspecified, first [...] Patient has never smoked Smoking Status Reviewed: 06/09/19 Patient has never smoked Exercise Type/Frequency Exercises sporadically Tattoo/Piercing Tattoo multiple Tattoo/Piercing Pierced ears Tattoo/Piercing Pierced Navel Tattoo/Piercing Pierced Nasal Area GABINO: 06/01/2017 Estimated Date of Based on Final GABINO Delivery GABINO: 07/31/2014 Estimated Date of Based on Final GABINO Delivery Allergies, Adverse Reactions, Alerts Active Allergies Reaction Severity Comments Date Omnicef Rash that looks like patient burned 07/27/2006 Penicillin Hives 02/16/2006 Seasonal 04/03/2019 Medications Active Medications SIG Qnty Indications Ordering Date Provider Metronidazole 1 by mouth twice 14tabs Z01.411 [facility] 06/09/2019 500mg a day for 7 days Lavinia, CNM Tablets Doxycycline Hyclate one by mouth 28caps N73.9 [facility] 06/09/2019 100mg twice a day x 14 Lavinia, CNM Capsules days Venlafaxine HCL ER 1 by mouth every 90caps F41.1 Poonam Gomez M.D. 2018 75mg day Caps ER 24HR Lorazepam take 1 tab by 15tabs Sarah Beth Redmond, 05/15/2019 0.5mg Tablets mouth once a day FOOD SAFETY SCIENTIST as needed. Clonidine HCL Take 1 Tablet By 30tabs F41Catherine1 Poonam Gomez M.D. 04/03/2019 0.1mg Mouth Every Day Tablets AT Bedtime as Needed Seasonique 1 by mouth every 84tabs [facility] 07/20/2017 day Lavinia CNM 0.15-0.03&0.01mg Tablets Excedrin Migraine 2 tabs by mouth Unknown as needed for [phone] Tablets migraines, to stop if flu or vomiting History Medications Venlafaxine HCL ER 1 by mouth F41.1 Poonam Gomez M.D. 05/15/2019 - every day 05/15/2019 37.5mg Caps ER 24HR Venlafaxine HCL ER 1 tab by mouth 90caps F41.1 Poonam Gomez M.D. 2018 - once a day 05/15/2019 37.5mg Caps ER 24HR Immunizations CPT Code Status Date Vaccine Lot # [id number] Given 08/14/2018 Influenza(Flublok)Virus Vaccine 18yr & up-Pres [id number] Free 68621 Given 03/16/2017 Tetanus, Diphtheria Toxoids/Acellular Pertussis [id number] Vaccine 7 Or > 88080 Given 06/14/2015 Influenza Quad 3yrs (0.5-ml dose) & up with preservative 21818 Given 07/08/2014 Tetanus, Diphtheria Toxoids/Acellular Pertussis 3P9CL Vaccine 7 Or > 48610 Given 05/07/2008 Menactra-Meningococcal Conj Vaccine 06372 Given 04/16/2007 Menactra-Meningococcal Conj Vaccine 33535 Given 01/31/2007 Tetanus, Diphtheria Toxoids/Acellular Pertussis Vaccine 7 Or > 01002 Given 08/13/2000 Poliovirus Vaccine Oral 61286 Given 10/21/1998 Hepatitis B Vaccine Pediatric/Adolescent 69699 Given 05/12/1998 Hepatitis B Vaccine Pediatric/Adolescent 22894 Given 04/15/1998 Hepatitis B Vaccine Pediatric/Adolescent 12457 Given 03/10/1994 DTaP Vaccine Younger Than 7 (daptacel/Infarix) 30277 Given 03/10/1994 MMR Vaccine, Live, For Subcutaneous Use 98723 Given 03/10/1994 Poliovirus Vaccine Oral 82013 Given 04/21/1992 Poliovirus Vaccine Oral 14487 Given 04/21/1992 DTP Vaccine 45018 Given 12/11/1990 MMR Vaccine, Live, For Subcutaneous Use 54195 Given 12/11/1990 DTP Vaccine 08345 Given 12/11/1990 Hib Hboc Conjugate 4 Dose Schedule 11676 Given 06/25/1990 Poliovirus Vaccine Oral 45811 Given 06/25/1990 DTP Vaccine 94268 Given 1989 DTP Vaccine Vital Signs Date Vital Result Comment 06/09/2019 8:12am Weight 153.00 lb Weight 69.401 kg BMI (Body Mass Index) 28.0 kg/m2 BP Systolic 102 mmHg BP Diastolic 76 mmHg Height 62 inches 5'2" Height in cm's 157.5 cm Last Menstrual Period 1260289 05/15/2019 9:21am Weight 149.00 lb Weight 67.586 kg BMI (Body Mass Index) 27.2 kg/m2 BP Systolic 118 mmHg BP Diastolic 82 mmHg Heart Rate 100 /min Respiratory Rate 18 /min Height 62 inches 5'2" Height in cm's 157.5 cm O2 % BldC Oximetry 98 % Results Test Date Facility Test Result H/L Range Note Laboratory test 05/15/2019 [facility] TSH 1.27 uIU/mL 0.34- 4.82 finding [phone] Xray 03/11/2019 [facility] Tibia & <pending> [address] [facility] [address], [address] [place] [address] Views RT [phone] Procedures Date Code Description Status 03/11/2019 14092 X-Ray [facility] Ap & Lateral Completed 03/24/2017 82947454 Colonoscopy Completed Medical Devices Description No Information Available Encounters Type Date Location Provider Dx Diagnosis Office Visit 05/15/2019 [facility] Poonam Gomez M.D. F41.0 Panic disorder 9:45a Care [episodic paroxysmal anxiety] Office Visit 04/03/2019 [facility] Poonam Gomez M.D. F41.1 Generalized 1:15p Care anxiety disorder Office Visit 03/11/2019 [facility] Eric Yuen, M79.661 Pain in right 11:00a Specialists MNguyen lower leg Assessments Date Code Description Provider 06/09/2019 Z01.411 Encounter for gynecological examination Hortencia Kate CNM (general) (routine) with abnormal findings 06/09/2019 N73.9 Female pelvic inflammatory disease, Hortencia Kate CNM unspecified 06/09/2019 N76.0 Acute vaginitis Hortencia aKte CNM 05/15/2019 F41.0 Panic disorder [episodic paroxysmal Apc and Endo Draw anxiety] 05/15/2019 F41.0 Panic disorder [episodic paroxysmal Poonam Gomez M.D. anxiety] 05/15/2019 F41.1 Generalized anxiety disorder Apc and Endo Draw 04/03/2019 F41.1 Generalized anxiety disorder Poonam Gomez M.D. 03/11/2019 M79.661 Pain in right lower leg Eric Yuen M.D. Plan of Treatment Future Appointment(s):08/13/2019 10:45 am - Poonam Gomez M.D. at [facility] Functional Status Functional Condition Comment Date Status Soft Contacts Active Glasses Active Mental Status Description No Information Available Referrals Description No Information Available
--- OUTSIDE RECORDS SUMMARY | 2019-07-25 15:10 | XMS REPORT | Continuity of Care Document ---
:1990 Author Organization [facility] Support Name Relationship Address Phone KETAN BENAVIDEZ mother [address] [place] [address] KETAN BENAVIDEZ mother [address] [place] [address] Allergies and Intolerances Code Code Allergy Type Reaction Severity Start End Status System Substance Date Date 61568 RXNorm Omnicef Drug Rash Mild Active allergy (disorder) 7980 RXNorm Penicillin G Drug Rash Mild Active allergy (disorder) 4053 RXNorm Erythromycin Drug stomach Mild Active Base allergy upset (disorder) 7052 RXNorm Morphine Drug stomach ach Mild Active allergy (disorder) Medications RxNorm Medication Dose Route Instructions Start Date End Date Status 888630 Clonidine 0.1 mg oral orally every day Active Hydrochloride 0.1 MG at bedtime as Oral Tablet needed. L-Norgest & E 1 tab oral orally daily Active Estradiol-E Estrad 0.15 mg-30 mcg (84)/10 mcg (7) 33460 Ondansetron 4 mg oral orally every 6 Active hours as needed. (as needed for nausea and vomiting) 824709 venlafaxine 75 MG 75 mg oral orally daily Active Oral Tablet Medications At Time Of Discharge RxNorm Medication Dose Route Instructions Start Date End Date Status 313984 Clonidine 0.1 mg oral orally every day Active Hydrochloride 0.1 MG at bedtime as Oral Tablet needed. L-Norgest & E 1 tab oral orally daily Active Estradiol-E Estrad 0.15 mg-30 mcg (84)/10 mcg (7) 66045 Ondansetron 4 mg oral orally every 6 Active hours as needed. (as needed for nausea and vomiting) 416831 venlafaxine 75 MG 75 mg oral orally daily Active Oral Tablet Problems Code Code System Problem Name Start Date End Date Status 22548545 SNOMED-CT Pyelonephritis 11/26/2017 Active 507848462 SNOMED-CT Sepsis syndrome 11/26/2017 Active 24834609 SNOMED-CT Hyponatremia 11/26/2017 Active 520364079 SNOMED-CT Hypomagnesemia 11/26/2017 Active 29675229 SNOMED-CT Muscle strain 07/01/2013 U Active 79152561 SNOMED-CT Maxillary sinusitis U Active 37122098 SNOMED-CT Contusion of nose U Active 799399505 SNOMED-CT Syncope U Active 75630820 SNOMED-CT Migraine U Active 85615858 SNOMED-CT Kidney stone U Active Procedures Code Code System Procedure Date 98122441 SNOMED CT Cholecystectomy U GANGLION CYST REMOVAL U Results Laboratory Results Order: TSH Specimen Source: Body Site: Legend: (G,H) = High, (GG,HH,CH,#H) = Above High Threshold, (#,L) = Low, (##,CL, #L,LL) = Below Low Threshold, (C,CC,CA,#A,A) = Abnormal LOINC Test Result Flag Range Units Date 3016-3 1TSH SerPl-aCnc 1.27 0.34-4.82 uIU/mL 05/15/2019 09:39 Performing Lab Footnotes:[facility] - [id number] - [address] [place] [address] IFRAH VICK Social History Code Code System Social History Description Dates Observed Observation 010137029 SNOMED CT Current Smoking Unknown if ever Status smoked UNK AdministrativeGender Sex Assigned At Unknown Vital Signs No data in the system Goals Section No data in the system Health Concerns No data in the systemEncounter Diagnosis Date Code Code System Diagnosis Status F41.0 ICD10 PANIC DISORDER Active Advance Directives *RHIO - CONSENT IS YES Directive Type Effective Date International Marketing Coordinator Notes Supporting Document Name Address Phone No Directive Type 04/03/2015 Not Specified Not Specified Not Specified None No specified 11:45:46 AM PT STATES NO ADVANCE DIRECTIVES Directive Type Effective Date International Marketing Coordinator Notes Supporting Document Name Address Phone No Directive Type 11/26/2017 6:00:00 Not Specified Not Specified Not Specified None No specified PM Encounters Encounter Diagnosis Location Date PANIC DISORDER [facility] 05/15/2019 Family History Relationship: Father Health Problem Age [...]
--- NOTE | 2019-07-25 15:44 | UC ---
Headache HPI - HPI Summary HPI Summary: 29 yo female presents with headache. She tells me that she has a history of migraines that are unilateral and come on suddenly without aura. She usually takes excedrin for these with good relief, but has occasionally needed IV medication to abort the headache. She tells me that last night around 2300 she developed a right sided frontal/orbital headache - took excedrin with no relief. Took tylenol and ibuprofen this morning with mild relief. Has slight nausea today, but is eating and drinking well. She has had imaging of her head in the past but not in many years. Denies fever, chills, recent illness, sinus symptoms, cough, SOB, chest pain, abdominal pain, vomiting, diarrhea, dysuria, back pain, numbness, or tingling. - History Of Current Complaint Stated Complaint: HEADACHE Time Seen by Provider: 07/25/19 15:44 Hx Obtained From: Patient Hx Last Menstrual Period: no period due to BCP Onset/Duration: Sudden Onset - Allergies/Home Medications Allergies/Adverse Reactions: Allergies Allergy/AdvReac Type Severity Reaction Status Date / Time Adhesive Tape Allergy Intermediate Rash Verified 07/25/19 15:54 cefdinir [From Omnicef] Allergy Rash Verified 07/25/19 15:54 Penicillins Allergy Rash Verified 07/25/19 15:54 Home Medications: Home Medications Acetaminop/Codeine 30 MG TAB* [Tylenol/Codeine 30 MG TAB*] 1 tab PO DAILY [History Confirmed 07/25/19] Venlafaxine EXT RELEASE CAP* [Effexor Xr CAP*] 75 mg PO Q8HR 07/25/19 [History Confirmed 07/25/19] cloNIDine TAB* [Catapres 0.1 MG TAB*] 0.1 mg PO Q8HR 07/25/19 [History Confirmed 07/25/19] PMH/Surg Hx/FS Hx/Imm Hx Neurological History: Migraine - Surgical History Surgical History: Yes Surgery Procedure, Year, and Place: Gall Bladder. Deviated septum. left ganglion cyst - Family History Known Family History: Positive: None - Social History Lives: With Family Alcohol Use: None Substance Use Type: None Smoking Status (MU): Never Smoked Tobacco Have You Smoked in the Last Year: No Review of Systems All Other Systems Reviewed And Are Negative: No Constitutional: Positive: Negative Skin: Positive: Negative Eyes: Positive: Negative ENT: Positive: Negative Respiratory: Positive: Negative Cardiovascular: Positive: Negative Gastrointestinal: Positive: Negative Genitourinary: Positive: Negative Motor: Positive: Negative Neurovascular: Positive: Negative Musculoskeletal: Positive: Negative Neurological: Positive: Headache Psychological: Positive: Negative Physical Exam - Summary Physical Exam Summary: GENERAL: NAD. WDWN. No pain distress. SKIN: No rashes, sores, ulcers, masses, lesions. HEENT: Head: AT/NC. No raccoon eyes or battles sign. Eyes: PERRLA. EOM intact. Conjunctiva clear without inflammation or discharge. Ears: Hearing grossly normal. TMs intact, no bulging, erythema, or edema. No hemotympanum Nose: Nasal mucosa pink and moist. NTTP maxillary and frontal sinus. Throat: Posterior oropharynx without exudates, erythema, or tonsillar enlargement. Uvula midline. NECK: Supple. Nontender. FROM CHEST: CTAB. No r/r/w. No accessory muscle use. Breathing comfortably and in no distress. CV: RRR. Pulses intact. Brisk cap refill. ABDOMEN: Soft. NTTP. Bowel sounds present MSK: FROM in B/L UEs and LEs with symmetric strength. NEURO: A&Ox3. 3 word recall, remote, recent memory, ability to follow 2-step directions, and attention intact. CN: II: Peripheral franklin intact. Vision normal. III, IV, : EOMI. No nystagmus. PERRLA. V: Sensations intact and symmetric. Opens mouth and clenches teeth. VII: No facial asymmetry. Forehead wrinkles. Grins, shuts eyes, frowns, puffs cheeks. VIII: Hearing intact to finger rub. IX, X: Swallows and coughs. Uvula midline. XI: Shrugs shoulders. Turns head against resistance. XII: No tongue deviation [id number] are intact. Gait with normal base. Romberg: maintains balance, no pronator drift. Normal speech. No facial drooping. PSYCH: Age appropriate behavior. Triage Information Reviewed: Yes Vital Signs: Vital Signs: Vital Signs: Temp Pulse Resp BP Pulse Ox 98.5 F 90 16 135/89 100 07/25/19 15:48 07/25/19 15:48 07/25/19 15:48 07/25/19 15:48 07/25/19 15:48 Vital Signs Reviewed: Yes Diagnostics - Radiology CT BRAIN Radiology Interpretation Completed By: Radiologist Summary of Radiographic Findings: IMPRESSION: No intracranial mass or hemorrhage is noted. Headache Course/Dx - Course Course Of Treatment: CT as above. Suspect migraine. In the clinic she was offered IVF, but declined and prefers po or IM. She was given toradol 60mg and zofran in the clinic. She wishes to be discharged at this time and does not want to wait in the clinic to ensure toradol improved her headache. - Differential Dx/Diagnosis Provider Diagnosis: Migraine Discharge ED - Sign-Out/Discharge Documenting (check all that apply): Patient Departure All imaging exams completed and their final reports reviewed: Yes - Discharge Plan Condition: Stable Disposition: HOME Patient Education Materials: Migraine Headache (ED) Referrals: Poonam Gomez MD [Primary Care Provider] - Additional Instructions: If you develop a fever, shortness of breath, chest pain, new or worsening symptoms - please call your PCP or go to the ED immediately. Your blood pressure was slightly elevated at todays visit. Please see your primary provider within 4 weeks for recheck and re-evaluation. The scan of your head was normal today - Billing Disposition and Condition Condition: STABLE Disposition: Home
[2019-07-25] MEDS ORDERED: Ondansetron ODT TAB* 4 MG SL ONE (15:52)
[2019-07-25] MEDS ORDERED: Ketorolac *IM* INJ* 60 MG/2 ML VIAL IM ONE (15:52)
[2019-07-25 15:54] VITALS: BP 135/89
== END 2019-07-25 16:35 | disposition home or self-care (01) ==
LOC: UCEAST 15:00
DX: G43.909 Migraine, unspecified, not intractable, without status migrainosus (principal); Z91.09 Other allergy status, other than to drugs and biological substances; Z88.0 Allergy status to penicillin; Z88.1 Allergy status to other antibiotic agents; Z79.899 Other long term (current) drug therapy
CPT/HCPCS: 70450; 96372; 99212; A9270-GY; G0463; J1885